=== PATIENT | male | born 1970 | race African-American/Black ===

== ENCOUNTER 2021-01-03 19:49 | Emergency (ER) | payer MEDICARE, MEDICAID ==
[~2021-01-03] VITALS: Ht 182.9 cm; Wt 210.9 kg
[~2021-01-03 19:49] MED LIST: CARB200T PO; DOCU-138 PO; ECOTRIN PO; ENAL20TA18 PO; FLUT50DI IH; HCTZ PO; LORA10TA2 PO; LORA5TAB8 PO; METFORMIN PO; OMEP20CA4 PO; PRAV10TA PO; REBIF SUBCUT; SENN-22 PO; TEMA30CA5 PO
[2021-01-03] MEDS ORDERED: HYDROCODONE/ACETAMINOPHEN 5/325MG TABLET PO ONE (20:30)
[2021-01-04 00:18] LABS: CLARITY URINE CLEAR (CLEAR); COLOR URINE YELLOW (YELLOW); PROTEIN URINE NEGATIVE (NEGATIVE); SPECIFIC GRAVITY URINE 1.022 (1.005-1.030)
[2021-01-04 00:19] LABS: KETONES URINE NEGATIVE (NEGATIVE); LEUKOCYTE ESTERASE URINE NEGATIVE (NEGATIVE); NITRITE URINE NEGATIVE (NEGATIVE); OCCULT BLOOD URINE NEGATIVE (NEGATIVE); UROBILINOGEN URINE 0.2 E.U./dL (0.2-1.0)
[2021-01-04 08:58] VITALS: BP 145/89
== END 2021-01-04 19:05 | disposition home or self-care (01) ==
LOC: ER 19:49
DX: M25.552 Pain in left hip (principal); F41.9 Anxiety disorder, unspecified; F32.9 Major depressive disorder, single episode, unspecified; E11.9 Type 2 diabetes mellitus without complications; I10 Essential (primary) hypertension; Z79.899 Other long term (current) drug therapy
CPT/HCPCS: 73521; 73562; 81003; 99284

== ENCOUNTER 2024-07-12 07:15 | Emergency (ER) | payer MEDICARE, MEDICAID ==
[~2024-07-12] VITALS: Ht 177.8 cm; Wt 213.0 kg
[~2024-07-12 07:15] MED LIST changes: +ENAL-79 PO; -ENAL20TA18 PO
[2024-07-12 07:17] VITALS: O2SAT 98
[2024-07-12] MEDS: IBUPROFEN 800MG TABLET PO ONE (07:42)
[2024-07-12 10:46] VITALS: BP 156/69; PULSE 74; RESP 14; TEMP 36.78072; O2SAT 98
== END 2024-07-12 11:00 | disposition home or self-care (01) ==
LOC: ER 07:37
DX: M79.605 Pain in left leg (principal); M79.604 Pain in right leg; E11.9 Type 2 diabetes mellitus without complications; I10 Essential (primary) hypertension; F41.9 Anxiety disorder, unspecified; F32.A Depression, unspecified; Z79.899 Other long term (current) drug therapy; W18.30XA Fall on same level, unspecified, initial encounter; Y93.89 Activity, other specified; Y92.89 Other specified places as the place of occurrence of the external cause; Y99.8 Other external cause status
CPT/HCPCS: 72170; 73552; 73560; 73590; 99284